=== PATIENT | male | born 1960 | race Hispanic/Latino ===

== ENCOUNTER → 2018-10-03 | Outpatient (CLI) | payer OTHER ==
[~2018-10-03] MED LIST: ASPI-1012 PO; ATOR-2 PO; CHLO50TA PO; INSU100C6 SQ; LISI40TA4 PO; METF-446 PO; NPH,100V11 SQ
== END | disposition home or self-care (01) ==
LOC: SHCH 11:36
PROVIDERS: ATTEND Internal Medicine Cardiovascular Disease
DX: I10 Essential (primary) hypertension (principal)
CPT/HCPCS: 93306

== ENCOUNTER → 2018-10-06 | Outpatient (CLI) | payer OTHER ==
[~2018-10-06] VITALS: Ht 172.7 cm; Wt 102.1 kg
[~2018-10-06] MED LIST changes: -ASPI-1012 PO; -ATOR-2 PO; -CHLO50TA PO; -INSU100C6 SQ; -LISI40TA4 PO; -METF-446 PO; -NPH,100V11 SQ; +REGADENOSON 0.4 MG/5 ML PF SYG IVP SCH
== END | disposition home or self-care (01) ==
LOC: SHCH 08:08
PROVIDERS: ATTEND Internal Medicine Cardiovascular Disease
DX: I25.9 Chronic ischemic heart disease, unspecified (principal); I25.119 Atherosclerotic heart disease of native coronary artery with unspecified angina pectoris
CPT/HCPCS: 78452; 93017; 96374; A9500 ×2; J2785

== ENCOUNTER → 2021-03-18 | Outpatient (CLI) | payer OTHER ==
[~2021-03-18] MED LIST changes: +ATOR-2 PO; +CHLO50TA PO; +INSU100C6 SQ; +METF-446 PO; +NPH,100V11 SQ; -REGADENOSON 0.4 MG/5 ML PF SYG IVP SCH
== END | disposition home or self-care (01) ==
LOC: SHCH 15:13
PROVIDERS: ATTEND Internal Medicine Cardiovascular Disease
DX: R00.2 Palpitations (principal)
CPT/HCPCS: 93306; 93356